=== PATIENT | female | born 2000 | race Caucasian/White ===

== ENCOUNTER 2022-07-02 16:22 | Emergency (ER) | payer BC, SELFPAY ==
--- NOTE | 2022-07-02 16:55 | ED.ABDPAIN ---
HPI - Abdominal Pain General Chief Complaint: Abdominal Pain <Melany Palomares NP - Last Filed: 07/02/22 16:58> Stated Complaint: Abdominal Pain <Melany Palomares NP - Last Filed: 07/02/22 16:58> Time Seen by Provider: 07/02/22 20:50 <Melany Palomares NP - Last Filed: 07/02/22 16:58> Source: patient <Wilson Taylor MD - Last Filed: 07/02/22 21:31> Mode of arrival: ambulatory <Wilson Taylor MD - Last Filed: 07/02/22 21:31> Limitations: no limitations <Wilson Taylor MD - Last Filed: 07/02/22 21:31> History of Present Illness HPI narrative: 21-year-old female who presents emergency department for evaluation of abdominal pain for 2-3 weeks. The patient states that initially the pain was intermittent and infrequent however over the past 1-2 weeks the pain is become daily and more frequent. She describes the pain as a cramping-like pain and she points to her upper abdomen when asked to localize the pain. She states that she was seen by a provider who told her to eat frequent small meals and to eat yogurt. States that initially this did help her pain but the pain is gotten worse. Patient states she does have anxiety. She states that over the last 24 hours she has not been able to eat secondary to her pain and her anxiety. The pain is 5/10 at its worst. The patient has not lost any weight. She states her last menstrual period was 06/20/2022. She initially took ibuprofen for pain but states she is not taking any [id number] medications for her pain. <Wilson Taylor MD - Last Filed: 07/02/22 21:31> MD elicited complaint: abdominal pain <Wilosn Taylor MD - Last Filed: 07/02/22 21:31> Pertinent past history: none <Wilson Taylor MD - Last Filed: 07/02/22 21:31> Onset (ago): week(s) (3) <Wilson Taylor MD - Last Filed: 07/02/22 21:31> Pain Consistency: intermittent <Wilson Taylor MD - Last Filed: 07/02/22 21:31> Location: epigastric, LUQ and RUQ <Wilson Taylor MD - Last Filed: 07/02/22 21:31> Severity: moderate <Wilson Taylor MD - Last Filed: 07/02/22 21:31> Pain scale (0-10): 5 <Wilson Taylor MD - Last Filed: 07/02/22 21:31> Quality: cramping <Wilson Taylor MD - Last Filed: 07/02/22 21:31> Radiation: none <Wilson Taylor MD - Last Filed: 07/02/22 21:31> Migration to: no migration <Wilson Taylor MD - Last Filed: 07/02/22 21:31> Exacerbating factors: nothing <Wilson Taylor MD - Last Filed: 07/02/22 21:31> Relieving factors: nothing <Wilson Taylor MD - Last Filed: 07/02/22 21:31> Associated symptoms: diarrhea (Two episodes in 3 weeks) <Wilson Taylor MD - Last Filed: 07/02/22 21:31> Related Data Allergies/Adverse Reactions: Allergies Allergy/AdvReac Type Severity Reaction Status Date / Time No Known Allergies Allergy Verified 07/02/22 16:58 <Melany Palomares NP - Last Filed: 07/02/22 16:58> Review of Systems Review of Systems Yes all other systems are reviewed and are negative <Wilson Taylor MD - Last Filed: 07/02/22 21:31> [facility] Past Medical History [facility] Narrative: Past medical history: Anxiety. Past surgical history: None. Social history: She denies tobacco, alcohol and drug use. She is here in the emergency department with her mother. <Wilson Taylor MD - Last Filed: 07/02/22 21:31> Social History Social History: Social History Advance Directives: No Advance Directives Information Provided: No <Melany Palomares NP - Last Filed: 07/02/22 16:58> Physical Exam ED Vital Signs: Vital Signs - 24 hr 07/02/22 16:56 07/02/22 20:41 Temperature 98.4 F 98.4 F Pulse Rate 128 H 122 H Respiratory Rate 20 18 Blood Pressure 126/85 138/84 Pulse Oximetry 99 99 Oxygen Delivery Method Room Air Room Air BMI result Body Mass Index 17.4 <Melany Palomares NP - Last Filed: 07/02/22 16:58> Vital Signs - 24 hr 07/02/22 16:56 07/02/22 20:41 Temperature 98.4 F 98.4 F Pulse Rate 128 H 122 H Respiratory Rate 20 18 Blood Pressure 126/85 138/84 Pulse Oximetry 99 99 Oxygen Delivery Method Room Air Room Air BMI result Body Mass Index 17.4 <Wilson Taylor MD - Last Filed: 07/02/22 21:31> Const Other: Awake, alert, female patient, very pleasant and cooperative, the patient is very thin with a BMI of 17.4. <Wilson Taylor MD - Last Filed: 07/02/22 21:31> HENCA Head: Yes normal to inspection, Yes normocephalic and Yes atraumatic <Wilson Taylor MD - Last Filed: 07/02/22 21:31> Ears: external ears normal <Wilson Taylor MD - Last Filed: 07/02/22 21:31> General nose exam: Normal external nose present <Wilson Taylor MD - Last Filed: 07/02/22 21:31> Face and sinus: Yes normal facial exam <Wilson Taylor MD - Last Filed: 07/02/22 21:31> Mouth: Normal oral and palatal mucosa present <Wilson Taylor MD - Last Filed: 07/02/22 21:31> Throat: Yes posterior oropharynx normal <Wilson Taylor MD - Last Filed: 07/02/22 21:31> Eyes General: appearance normal, both eyes and all related structures <Wilson Taylor MD - Last Filed: 07/02/22 21:31> Pupils: Equal, round and reactive pupils present <Wilson Taylor MD - Last Filed: 07/02/22 21:31> Neck Neck: Yes normal visual inspection, Yes no lymphadenopathy, Yes trachea midline and Yes supple <Wilson Taylor MD - Last Filed: 07/02/22 21:31> Chest Chest palpation & inspection: normal inspection of the chest and normal palpation of entire chest wall <Wilson Taylor MD - Last Filed: 07/02/22 21:31> Resp Effort & Inspection: normal respiratory effort and able to speak in complete sentences <Wilson Taylor MD - Last Filed: 07/02/22 21:31> Auscultation: clear to auscultation bilaterally <Wilson Taylor MD - Last Filed: 07/02/22 21:31> Cardio Rate: regular rate <Wilson Taylor MD - Last Filed: 07/02/22 21:31> Rhythm: regular rhythm <MD Basil Pierre Last Filed: 07/02/22 21:31> Heart sounds: S1 normal heart sound present, S2 normal heart sound present and no murmurs <Wilson Taylor MD - Last Filed: 07/02/22 21:31> GI Inspection: Yes normal to inspection <MD Basil Pierre Last Filed: 07/02/22 21:31> Palpation (GI): Soft to palpation, Tenderness to palpation present (GI) in the epigastrum (Mild) and in the LUQ (Mild) and no guarding <MD Basil Pierre Last Filed: 07/02/22 21:31> Auscultation: normal bowel sounds <MD Basil Pierre Last Filed: 07/02/22 21:31> General: Yes no CVA tenderness <MD Basil Pierre Last Filed: 07/02/22 21:31> Back/Spine/Pelvis Back: no CVA tenderness <MD Basil Pierre Last Filed: 07/02/22 21:31> Skin General skin exam: no rashes or lesions noted <MD Basil Pierre Last Filed: 07/02/22 21:31> Neuro Cranial nerves: Yes CN's II-XII intact bilaterally and Yes Equal, round and reactive pupils present <Wilson Taylor MD - Last Filed: 07/02/22 21:31> Cognition (Neuro): normal cognition <Wilson Taylor MD - Last Filed: 07/02/22 21:31> Extrem General: Yes normal to inspection <Wilson Taylor MD - Last Filed: 07/02/22 21:31> Psych Appearance: grossly normal <Wilson Taylor MD - Last Filed: 07/02/22 21:31> Speech and movement: Normal speech and movement present <Wilson Taylor MD - Last Filed: 07/02/22 21:31> Affect: normal affect <Wilson Taylor MD - Last Filed: 07/02/22 21:31> Attitude: cooperative <Wilson Taylor MD - Last Filed: 07/02/22 21:31> Course Course Course Narrative: This is a rapid medical exam. Deferred additional HPI, ROS, PE to primary provider. 21 yo female healthy here with complaints of intermittent right sided abdominal pain, gas and constipation x several weeks. No nausea, vomiting, diarrhea, urinary symptoms, fevers. chills. LMP 2 weeks ago. Will check labs, UA, ur preg. <Melany Palomares NP - Last Filed: 07/02/22 16:58> This is a rapid medical exam. Deferred additional HPI, ROS, PE to primary provider. 21 yo female healthy here with complaints of intermittent right sided abdominal pain, gas and constipation x several weeks. No nausea, vomiting, diarrhea, urinary symptoms, fevers. chills. LMP 2 weeks ago. Will check labs, UA, ur preg. 2120: Course:RME reviewed. 21-year-old female presents emergency department for evaluation of intermittent abdominal pain x3 weeks. Pain is a cramping like pain 5/10. On exam the patient did have epigastric tenderness and left upper quadrant tenderness otherwise was unremarkable. At this time I suspect the patient has gastritis and may also be having bowel painful peristalsis. I did discuss this with her and her mother. The patient was started on Pepcid 20 mg once a day for 1 month and Metamucil 1 tsp in 8 oz of water daily for 1 month. She was given printed and verbal instructions and discharged home. <Wilson Taylor MD - Last Filed: 07/02/22 21:31> Medical Decision Making Lab Data Result Diagrams: : 07/02/22 17:28 07/02/22 17:28 <Melany Palomares NP - Last Filed: 07/02/22 16:58> Labs: Lab Results 07/02/22 07/02/22 07/02/22 Range/Units 17:28 17:28 17:28 WBC 9.5 (4.8-10.8) X10*3/uL RBC 4.56 (4.20-5.50) X10*6/uL Hgb 13.9 (12.0-16.0) g/dl Hct 39.9 (37.0-47.0) % MCV 87.5 (80.0-98.0) fL MCH 30.5 (27.0-33.0) pg MCHC 34.8 (31.0-35.0) g/dl RDW 11.5 (11.0-16.0) % Plt Count 323 (160-400) X10*3/uL MPV 9.4 (9.4-12.3) fL Immature Gran % (Auto) 0.4 (0.0-0.4) % Neut % (Auto) 80.8 H (45-73) % Lymph % (Auto) 13.7 L (20-40) % [place] % (Auto) 4.1 (2-11) % Eos % (Auto) 0.4 (0-4) % Baso % (Auto) 0.6 (0-2) % Lymph # (Auto) 1.3 (1.2-4.9) X10*3/uL [place] # (Auto) 0.4 (0.1-1.2) X10*3/uL Eos # (Auto) 0.0 (0.0-0.4) X10*3/uL Baso # (Auto) 0.1 (0.0-0.2) X10*3/uL Abs Immat Gran (auto) 0.04 H (0.00-0.03) X10*3/uL Absolute Neuts (auto) 7.7 (2.0-8.3) x10*3/uL Absolute Nucleated RBC 0.000 (0.0-0.012) X10*3/uL Nucleated RBC % (auto) 0.0 (0.0-0.2) /100WBC Sodium 139 (135-145) mmol/L Potassium 4.1 (3.3-5.1) mmol/L Chloride 105 (96-108) mmol/L Carbon Dioxide 21 L (22-29) mmol/L Anion Gap 17 (12-20) BUN 15 (9-16) mg/dL Creatinine 0.73 (0.5-1.4) mg/dL Estim Creat Clear Calc 94.3 Estimated GFR > 60 Random Glucose 89 (60-115) mg/dL Calcium 9.5 (8.4-10.2) mg/dL Total Bilirubin 0.5 (0.0-1.0) mg/dL Direct Bilirubin 0.2 (0.0-0.5) mg/dL AST 15 (5-31) U/L ALT 11 (0-31) U/L Alkaline Phosphatase 51 (39-117) U/L Total Protein 7.7 (6.5-8.0) g/dL Albumin 4.6 (3.5-5.0) g/dL COVID-19 (JEFFERY) Negative (Negative) COVID-19 Clin Com See Note <Melany Palomares, ACCOUNTING SUPPORT SPECIALIST - Last Filed: 07/02/22 16:58> Lab Results 07/02/22 07/02/22 07/02/22 Range/Units 17:28 17:28 17:28 WBC 9.5 (4.8-10.8) X10*3/uL RBC 4.56 (4.20-5.50) X10*6/uL Hgb 13.9 (12.0-16.0) g/dl Hct 39.9 (37.0-47.0) % MCV 87.5 (80.0-98.0) fL MCH 30.5 (27.0-33.0) pg MCHC 34.8 (31.0-35.0) g/dl RDW 11.5 (11.0-16.0) % Plt Count 323 (160-400) X10*3/uL MPV 9.4 (9.4-12.3) fL Immature Gran % (Auto) 0.4 (0.0-0.4) % Neut % (Auto) 80.8 H (45-73) % Lymph % (Auto) 13.7 L (20-40) % [place] % (Auto) 4.1 (2-11) % Eos % (Auto) 0.4 (0-4) % Baso % (Auto) 0.6 (0-2) % Lymph # (Auto) 1.3 (1.2-4.9) X10*3/uL [place] # (Auto) 0.4 (0.1-1.2) X10*3/uL Eos # (Auto) 0.0 (0.0-0.4) X10*3/uL Baso # (Auto) 0.1 (0.0-0.2) X10*3/uL Abs Immat Gran (auto) 0.04 H (0.00-0.03) X10*3/uL Absolute Neuts (auto) 7.7 (2.0-8.3) x10*3/uL Absolute Nucleated RBC 0.000 (0.0-0.012) X10*3/uL Nucleated RBC % (auto) 0.0 (0.0-0.2) /100WBC Sodium 139 (135-145) mmol/L Potassium 4.1 (3.3-5.1) mmol/L Chloride 105 (96-108) mmol/L Carbon Dioxide 21 L (22-29) mmol/L Anion Gap 17 (12-20) BUN 15 (9-16) mg/dL Creatinine 0.73 (0.5-1.4) mg/dL Estim Creat Clear Calc 94.3 Estimated GFR > 60 Random Glucose 89 (60-115) mg/dL Calcium 9.5 (8.4-10.2) mg/dL Total Bilirubin 0.5 (0.0-1.0) mg/dL Direct Bilirubin 0.2 (0.0-0.5) mg/dL AST 15 (5-31) U/L ALT 11 (0-31) U/L Alkaline Phosphatase 51 (39-117) U/L Total Protein 7.7 (6.5-8.0) g/dL Albumin 4.6 (3.5-5.0) g/dL COVID-19 (JEFFERY) Negative (Negative) COVID-19 Clin Com See Note <Wilson Taylor MD - Last Filed: 07/02/22 21:31> Discharge Plan Discharge Clinical Impression: Gastritis <Melany Palomares NP - Last Filed: 07/02/22 16:58> Patient Disposition: Home, Self-Care <Melany Palomares NP - Last Filed: 07/02/22 16:58> Instructions: Gastritis (ED) <Melany Palomares NP - Last Filed: 07/02/22 16:58> Additional Instructions: Your complete blood count and comprehensive metabolic panel were normal. Urinalysis was normal as well. Your test was negative. Your COVID-19 test was negative. You did have tenderness palpation over your stomach area and I suspect that you inflammation of your stomach (gastritis) as the cause of your pain Take Pepcid (famotidine) 20 mg pills, 1 pill daily for 1 month. This medication reduces the amount of acid that your stomach makes it will help the inflammation in your stomach heal. I also think that you may be experiencing pain from peristalsis (the rhythmic movement of your bowel). This is often helped by crease in the fiber in your diet Take Metamucil 1 tsp in 8 oz of water daily for 1 month. Take Tylenol (acetaminophen) 320 mg pills, 2 pills every 6 hours as needed for pain. Follow-up with your doctor in 2 days. Please return to the emergency department if your symptoms get worse or if you develop any symptoms that are concerning to you. <Melany Palomares NP - Last Filed: 07/02/22 16:58>
[2022-07-02 16:56] VITALS: BP 126/85; PULSE 128; RESP 20; TEMP 36.9; O2SAT 99; BMI 17.4
[2022-07-02 17:33] LABS: MANUAL DIFF FLAG NO
[2022-07-02 17:43] LABS: Basophils Absolute Auto 0.1 X10*3/uL (0.0-0.2); Basophils Percent Auto 0.6 % (0-2); Eosinophils Percent Auto 0.4 % (0-4); Hematocrit 39.9 % (37.0-47.0); Hemoglobin 13.9 g/dl (12.0-16.0); Imm Gran Abs Auto 0.04 X10*3/uL (0.00-0.03); Imm Gran Pct Auto 0.4 % (0.0-0.4); Lymphocytes Absolute Auto 1.3 X10*3/uL (1.2-4.9); Lymphocytes Percent Auto 13.7 % (20-40); Mean Corpuscular HGB Conc 34.8 g/dl (31.0-35.0); Mean Corpuscular Hemoglobin 30.5 pg (27.0-33.0); Mean Corpuscular Volume 87.5 fL (80.0-98.0); Mean Platelet Volume 9.4 fL (9.4-12.3); Monocytes Absolute Auto 0.4 X10*3/uL (0.1-1.2); Monocytes Percent Auto 4.1 % (2-11); Neutrophils Absolute Auto 7.7 x10*3/uL (2.0-8.3); Neutrophils Percent Auto 80.8 % (45-73); Platelet Count 323 X10*3/uL (160-400); Red Blood Count 4.56 X10*6/uL (4.20-5.50); Red Cell Distribution Width 11.5 % (11.0-16.0); White Blood Count 9.5 X10*3/uL (4.8-10.8)
[2022-07-02 17:53] LABS: Alanine Aminotransferase 11 U/L (0-31); Albumin Level 4.6 g/dL (3.5-5.0); Alkaline Phosphatase 51 U/L (39-117); Anion Gap 17 (12-20); Aspartate Amino Transferase 15 U/L (5-31); Bilirubin Direct 0.2 mg/dL (0.0-0.5); Bilirubin Total 0.5 mg/dL (0.0-1.0); Blood Urea Nitrogen 15 mg/dL (9-16); Calcium 9.5 mg/dL (8.4-10.2); Carbon Dioxide 21 mmol/L (22-29); Chloride 105 mmol/L (96-108); Creatinine Clr Calc Pharmacy 94.3; Estimated Glomerular Filt Rate > 60; Glucose Random 89 mg/dL (60-115); Potassium 4.1 mmol/L (3.3-5.1); Sodium 139 mmol/L (135-145); Total Protein 7.7 g/dL (6.5-8.0)
[2022-07-02 18:07] LABS: COVID-19 Test Negative (Negative); IDNOW Serial# 16C4AD1C
[2022-07-02 20:41] VITALS: BP 138/84; PULSE 122; RESP 18; TEMP 36.9; O2SAT 99
[2022-07-02 21:00] LABS: Appearance Urine Clear; Color Urine Yellow; Glucose Urine UA Negative (Negative); Leukocyte Esterase Urine Negative (Negative); Nitrite Urine Negative (Negative); PH 5.5 (5.0-9.0); Specific Gravity - Urine >= 1.030 (1.005-1.025); UMIC TRIGGER UACC YES; Urine Blood Small (1+) (Negative); Urine Ketones >=160 mg/dL (Negative); Urine Protein Trace mg/dL (Neg-Trace)
[2022-07-02 21:02] LABS: UPreg QC Valid YES; Urine Pregnancy NEGATIVE (NEGATIVE)
[2022-07-02 21:08] LABS: Bacteria Urine 1+ (None Seen); Hyaline Casts Urine 0-2 /LPF (0-2); WBC Urine 0-5 /HPF (0-5)
[2022-07-02 21:28] VITALS: PULSE 90
== END 2022-07-02 21:29 | disposition home or self-care (01) ==
PROVIDERS: Nurse Practitioner Family; Emergency Provider Emergency Medicine Emergency Medical Services
DX: K29.70 Gastritis, unspecified, without bleeding (principal); Z20.822 Contact with and (suspected) exposure to COVID-19; R63.6 Underweight; Z68.1 Body mass index [BMI] 19.9 or less, adult
CPT/HCPCS: 36415; 80048; 80076; 81001; 81003; 81025; 85025; 87635; 99283